=== PATIENT | male | born 1975 | race Caucasian/White ===

== ENCOUNTER 2024-06-04 17:15 | Emergency (ER) | payer BC ==
[2024-06-04] MEDS ORDERED: Tetracaine HCl/PF 0.5% 4 ML Bottle EYEBOTH ONE (18:03)
== END 2024-06-04 19:01 | disposition home or self-care (01) ==
LOC: MW.ED 17:15
DX: H10.9 Unspecified conjunctivitis (principal); I10 Essential (primary) hypertension; Z79.899 Other long term (current) drug therapy
CPT/HCPCS: 99282; 99283